=== PATIENT | male | born 1990 | race Caucasian/White ===

== ENCOUNTER 2017-08-09 15:16 | Emergency (ER) | payer OTHER ==
[~2017-08-09] VITALS: Ht 179.1 cm; Wt 111.2 kg
[~2017-08-09 15:16] MED LIST: ALLEGRA-D 121 TABLET PO; MOTRIN600 MG PO; PEN-VEE K,VEET500 MG PO; TESSALON PERLE100 MG PO
[2017-08-09 16:16] LABS: HEMATOCRIT 43.2 % (38.0-50.0); HEMOGLOBIN 15.1 G/DL (12.5-16.6); MCH 30.4 PG (29.0-34.0); MCV 86.9 FL (86-99); PLATELET COUNT 191 K/uL (156-360); RBC DIS.WIDTH-CV 12.3 % (11.8-14.6); RBC DIS.WIDTH-SD 39.4 % (39-53); RED BLOOD COUNT 4.97 M/uL (4.00-5.50); WHITE BLOOD COUNT 9.3 K/uL (4.1-10.2)
[2017-08-09 16:25] LABS: CHLORIDE 102 mEq/L (99-109); POTASSIUM 3.9 mEq/L (3.7-5.4); SODIUM 139 mEq/L (136-147)
[2017-08-09 16:27] LABS: GLUCOSE 74 mg/dL (70-99)
[2017-08-09 16:31] LABS: CREATININE 0.9 mg/dL (0.6-1.3); GFR ESTIMATE (CALCULATED) > 59 mL/min/ (58.99-99999)
[2017-08-09 16:32] LABS: UREA NITROGEN (BUN) 11 mg/dL (9-23)
[2017-08-09 17:23] LABS: APPEARANCE CLEAR ((CLEAR)); BILIRUBIN NEGATIVE; BLOOD NEGATIVE; COLOR YELLOW ((YELLOW)); GLUCOSE (STRIP) NEGATIVE; KETONES 20; LEUKOCYTES NEGATIVE; NITRITE NEGATIVE; PROTEIN (STRIP) NEGATIVE; SPECIFIC GRAVITY 1.021 (1.000-1.030); UCUL ADDED? NO; UROBILINOGEN 0.2 MG/DL (0.2-1.0)
[2017-08-09 19:20] VITALS: BP 132/71
[2017-08-09 19:32] VITALS: BP 132/71
[2017-08-09] MEDS ORDERED: NORCO 5/3251 TABLET PO (21:41)
[2017-08-09] MEDS ORDERED: AUGMENTIN875 MG PO (21:41)
[2017-08-09 23:26] VITALS: BP 126/64
[2017-08-10 03:37] VITALS: BP 103/51
[2017-08-10 07:54] VITALS: BP 118/62
== END 2017-08-10 11:45 | disposition short-term general hospital (02) ==
LOC: EME 15:16 → 2SOUTH 17:46 → ENRESERV 17:48 → 2EAST 18:04 → 2SOUTH 18:07 → ENRESERV 18:07 → 2EAST 19:12
PROVIDERS: Nurse Practitioner Family
PROC: 0DTJ4ZZ Resection of Appendix, Percutaneous Endoscopic Approach (ICD-10-PCS; principal; 2017-08-09)
DX: K35.80 Unspecified acute appendicitis (principal); F17.200 Nicotine dependence, unspecified, uncomplicated
CPT/HCPCS: 74177; 80048; 81003; 83605; 85027; 87040; 88304; 99281; 99285; G0378; J0330; J1170; J2405; J2543; J2710; J3010; J7040; J7050; J7120; J7643